=== PATIENT | male | born 1940 | race Caucasian/White ===

== ENCOUNTER 2017-10-07 13:33 | Outpatient (CLI) | payer MEDICARE, BC ==
--- NOTE | 2017-10-07 14:50 | ULT ---
TESTICULAR ULTRASOUND: Date: 10/07/17 HISTORY: Enlarged testicle. COMPARISON: None. TECHNIQUE: Meyers scale, color flow, Doppler imaging, and spectral waveform analysis performed of left and right t esticle. FINDINGS: Right Hemiscrotum: Right testicle measures 4.2 x 2.3 x 3.2 cm. There appear to be anechoic foci which are intrinsic to t he right testicle. Some of these anechoic foci may be associated with a prominent rete testis. Solid masses are not appreciated. There are anechoic foci in the expected region of right epididymis. Large st anechoic focus measures 4.0 x 2.5 x 3.9 cm. Small anechoic focus measuring 0.7 x 0.7 x 0.8 cm is n oted. Normal appearing epididymal tissue is not appreciated. No significant fluid in the right hemisc rotum. Left Hemiscrotum: Left testicle measures 3.5 x 1.6 x 2.7 cm. Rete testis are noted. There is evidence of anechoic foci in the expected region of the left epididymis compatible with two cysts measuring 0.9 x 0.9 x 0.9 and 1.1 x 1.1 x 0.9 cm. Small amount of normal appearing epididymal tissue is noted. There is a small am ount of free fluid in the left hemiscrotum. Testicular Doppler: Symmetric vascular flow to both testicles. IMPRESSION: 1. Prominent bilateral rete testis. 2. Bilateral epididymal cysts, right greater than left. Given the size of the right epididymal cyst, urological consultation may be beneficial. POS: T[facility]I
== END 2017-10-07 13:34 | disposition home or self-care (01) ==
LOC: SCSULT 13:33
PROVIDERS: ATTEND Family Medicine
DX: N50.89 Other specified disorders of the male genital organs (principal); N50.3 Cyst of epididymis
CPT/HCPCS: 76870; 93976